=== PATIENT | female | born 1995 | race African-American/Black ===

== ENCOUNTER 2018-04-19 20:40 | Emergency (ER) | payer OTHER ==
[~2018-04-19] VITALS: Ht 165.1 cm; Wt 90.7 kg
[2018-04-19 21:23] LABS: ABSOLUTE NEUTROPHILS 6.2 thou/uL (1.4-8.2); BASOPHILS 0.3 % (0.0-2.0); EOSINOPHILS 1.2 % (0.0-3.0); HEMATOCRIT 34.8 % (37.0-47.0); HEMOGLOBIN 11.4 gm/dL (12.0-15.0); LYMPHOCYTES 30.6 % (24.0-44.0); MCHC 32.6 g/dL (28.0-37.0); MCV 76.7 fL (80.0-100.0); PLATELET COUNT 302 thou/uL (150-400); POLYS 62.9 % (36.0-66.0); RBC 4.54 mil/uL (4.20-5.00); RDW 17.4 % (10.5-14.5); WBC 9.9 thou/uL (4.0-11.0)
[2018-04-19] MEDS ORDERED: OMEPRAZOLE 20 M20 M1 PO (21:24)
[2018-04-19 21:30] LABS: CALCIUM 9.1 mg/dL (8.5-10.1); POTASSIUM 3.3 mmol/L (3.5-5.1)
[2018-04-19 21:33] LABS: ALBUMIN 3.6 g/dL (3.4-5.0); TOTAL BILIRUBIN 0.3 mg/dL (<0.1-1.0)
[2018-04-19] MEDS ORDERED: ZOFRAN ODT4 MG PO (22:54)
[2018-04-19 23:07] VITALS: BP 127/61
== END 2018-04-19 23:08 | disposition home or self-care (01) ==
LOC: ER 20:40
PROVIDERS: Emergency Medicine
DX: O26.891 Other specified pregnancy related conditions, first trimester (principal); R10.13 Epigastric pain; K21.9 Gastro-esophageal reflux disease without esophagitis; Z3A.00 Weeks of gestation of pregnancy not specified